=== PATIENT | female | born 1980 | race Caucasian/White ===

== ENCOUNTER 2017-03-13 16:43 | Emergency (ER) | payer OTHER ==
[~2017-03-13] VITALS: Ht 170.2 cm; Wt 70.8 kg
[2017-03-13 18:39] VITALS: BP 137/77
== END 2017-03-13 18:39 | disposition home or self-care (01) ==
LOC: ED 16:43
DX: B35.0 Tinea barbae and tinea capitis (principal); Z79.899 Other long term (current) drug therapy

== ENCOUNTER 2017-11-08 12:22 | Emergency (ER) | payer OTHER ==
[~2017-11-08] VITALS: Ht 170.2 cm; Wt 67.1 kg
[2017-11-08 13:36] VITALS: BP 145/85
== END 2017-11-08 13:36 | disposition home or self-care (01) ==
LOC: ED 12:22
DX: S20.219A Contusion of unspecified front wall of thorax, initial encounter (principal); G89.29 Other chronic pain; M54.9 Dorsalgia, unspecified; V43.52XA Car driver injured in collision with other type car in traffic accident, initial encounter; Z88.0 Allergy status to penicillin; Z88.2 Allergy status to sulfonamides; W22.11XA Striking against or struck by driver side automobile airbag, initial encounter; Y93.I9 Activity, other involving external motion; Y92.410 Unspecified street and highway as the place of occurrence of the external cause; Y99.8 Other external cause status